=== PATIENT | male | born 1980 | race Caucasian/White ===

== ENCOUNTER 2016-07-25 18:03 | Emergency (ER) | payer SELFPAY ==
[2016-07-25 18:21] VITALS: BP 118/75; TEMP 98.5; O2SAT 83
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
[2016-07-25] MEDS: CYCLOBENZAPRINE HCL 10 MG TAB PO ONE (18:26)
[2016-07-25] MEDS: KETOROLAC TROMETHAMINE INJ 30 MG/ML VIAL IM ONE (18:27)
--- NOTE | 2016-07-25 18:32 | RAD ---
EXAM: Chest,2 Views CLINICAL INDICATION: 35-year-old male with back pain after sneezing. TECHNIQUE: Two-view, PA and lateral projections of the chest were obtained. COMPARISON: None. FINDINGS: Unremarkable cardiac and mediastinal silhouette. Heart size is normal. Lungs are clear without focal opacity, pneumothorax or pleural effusions. The visualized bones are within normal limits. IMPRESSION: No acute cardiopulmonary abnormalities. Electronically signed by: Neisha Flores MD 07/25/2016 6:32 PM CDT Workstation: [id number]
== END 2016-07-25 18:42 | disposition home or self-care (01) ==
LOC: ER 18:03
DX: M54.6 Pain in thoracic spine (principal); I10 Essential (primary) hypertension; Z88.6 Allergy status to analgesic agent; Z79.899 Other long term (current) drug therapy; Z86.14 Personal history of Methicillin resistant Staphylococcus aureus infection; Z87.891 Personal history of nicotine dependence; Z87.09 Personal history of other diseases of the respiratory system
CPT/HCPCS: 71020; J1885

== ENCOUNTER 2016-08-09 11:04 | Emergency (ER) | payer SELFPAY ==
[2016-08-09] MEDS: ONDANSETRON INJ 4 MG/2 ML VIAL IV ONE (11:23)
[2016-08-09] MEDS: SODIUM CHLORIDE 0.9% 1000ML 1,000 ML IVS ONE ×2 (11:23→12:34)
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
[2016-08-09 13:48] VITALS: BP 101/62; TEMP 98; O2SAT 98
== END 2016-08-09 13:48 | disposition home or self-care (01) ==
LOC: ER 11:04
DX: K52.9 Noninfective gastroenteritis and colitis, unspecified (principal); I10 Essential (primary) hypertension; Z88.6 Allergy status to analgesic agent; Z86.14 Personal history of Methicillin resistant Staphylococcus aureus infection; Z87.891 Personal history of nicotine dependence; Z87.898 Personal history of other specified conditions
CPT/HCPCS: 36415; 80053; 81001; 83690; 85025; J2405; J7030

== ENCOUNTER 2017-04-14 15:19 | Emergency (ER) | payer SELFPAY ==
[2017-04-14 16:21] VITALS: TEMP 98.5; O2SAT 98
[2017-04-14] MEDS ORDERED: HYDROcodone 10MG/APAP 325MG 1 EA TAB PO ONE (16:30)
[2017-04-14] MEDS ORDERED: KETOROLAC TROMETHAMINE INJ 60 MG/2 ML VIAL IM ONE (16:30)
[2017-04-14] MEDS ORDERED: ORPHENADRINE CITRATE 30 MG/ML AMP IM ONE (16:30)
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
[2017-04-14 17:26] VITALS: BP 116/72
== END 2017-04-14 17:22 | disposition home or self-care (01) ==
LOC: ER 15:19
DX: M54.6 Pain in thoracic spine (principal); I10 Essential (primary) hypertension; Z87.891 Personal history of nicotine dependence
CPT/HCPCS: J1885; J2360

== ENCOUNTER 2018-06-21 18:40 | Emergency (ER) | payer SELFPAY ==
[2018-06-21 19:19] VITALS: BP 127/91; O2SAT 99
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
[2018-06-21] MEDS ORDERED: CLINDAMYCIN IV 900MG 900 MG in PREMIX BAG 1 BAG IVPB ONE (20:43)
[2018-06-21] MEDS ORDERED: KETOROLAC TROMETHAMINE INJ 30 MG/ML VIAL IV ONE (20:44)
[2018-06-21] MEDS ORDERED: traMADol HCL 50 MG TAB PO ONE (20:44)
[2018-06-21] MEDS ORDERED: CLINDAMYCIN IV 900MG 50 ML IVPB ONE (20:48)
--- NOTE | 2018-06-21 21:25 | CT ---
EXAM DESCRIPTION: Sinuses CLINICAL HISTORY: facial swelling COMPARISON: None Available. TECHNIQUE: Contiguous axial images of the face/sinuses were obtained without the administration of intravenous contrast. This exam was performed according to our departmental dose-optimization program, which includes automated exposure control, adjustment of the mA and/or kV according to patient size and/or use of iterative reconstruction technique. FINDINGS: There is mucosal periosteal thickening of the right maxillary sinus compatible with chronic sinusitis changes. Multiple lucencies at the periapical level/teeth more pronounced at the anterior right maxilla, image 31 compatible with periapical abscesses. Within the soft tissues adjacent to the right maxilla, there is a 6.2 mm area of low-attenuation compatible with a small abscess. Adjacent stranding of the subcutaneous fat and soft tissue swelling at this level compatible with an infectious process/edema. Multiple small lymph nodes are noted within the neck, not enlarged by CT criteria. Airway is patent. Atrophic left parotid gland. Retrobulbar fat is within normal limits. IMPRESSION: Findings compatible with a right periapical abscesses at the level of the anterior right maxilla. Electronically signed by: Beck Fernandez MD 06/21/2018 9:23 PM CDT
[2018-06-21] MEDS: traMADol HCL 50 MG (ER DISP) # 6 TABS PO ONE (21:54)
[2018-06-21 22:02] VITALS: TEMP 98.8
[2018-06-22] MEDS: traMADol HCL 50 MG (ER DISP) # 6 TABS PO ONE (06:34)
== END 2018-06-21 21:54 | disposition home or self-care (01) ==
LOC: ER 18:40
DX: K04.7 Periapical abscess without sinus (principal); L03.211 Cellulitis of face; K02.9 Dental caries, unspecified; I10 Essential (primary) hypertension; Z87.891 Personal history of nicotine dependence; Z88.5 Allergy status to narcotic agent
CPT/HCPCS: 36415; 70486; 80048; 85025; J1885; J3490